=== PATIENT | female | born 1945 | race Caucasian/White ===

== ENCOUNTER → 2017-11-30 | Outpatient (CLI) | payer MEDICARE, OTHER ==
[~2017-11-30] MED LIST: ALBU90OI; AMLO5 PO; AZIT250 PO; BLOOD PRESSURE MED PO; CRANBERRY 12,61 EACH; CRANBERRY SUPPLEMENT PO; DOXE10 PO; ESTR25VT PV; Fenofibrate134 MG; GABA300; HYDCHL25; HYDCHL25 PO; KRILL OIL 1,001 EAC1; LOSA50; MEDI SLEEP; METO25ER; MULVITMIND PO; NAPR500ERA; NITR100 PO; NITR100CA PO; OLOP.1OPSO BOTHEYES; SULTRIDS PO; VAGIFEM10 MCG
[2017-12-02 11:16] LABS: HPV Genotype 16 Not Detected (NOTDET); HPV Genotype 18 Not Detected (NOTDET)
[2017-12-06 10:59] LABS: HPV High Risk Other Not Detected (NOTDET)
[2017-12-06 12:28] LABS: Source VAG/CERVIX
== END | disposition home or self-care (01) ==
LOC: LAB 14:50 → LAB SHORT 14:50
PROVIDERS: Obstetrics & Gynecology
DX: Z01.419 Encounter for gynecological examination (general) (routine) without abnormal findings (principal)
CPT/HCPCS: 87624; G0123

== ENCOUNTER 2020-07-26 11:37 | Day surgery (SDC) | payer MEDICARE, OTHER ==
[~2020-07-26] VITALS: Ht 170.2 cm; Wt 88.6 kg
[~2020-07-26 11:37] MED LIST changes: +CRANBERRY CONC1 EAC1 PO; +DICY20 PO; +Hair, Skin & N1 EACH PO; +LOSA50 PO; +Lovastatin20 MG PO; +MOTOFEN PO; +Selenomax200 MCG PO; +VIT1CAPS12 PO; +VITAMIN D32000 UNI2 PO
== END 2020-07-26 13:58 | disposition home or self-care (01) ==
LOC: ORSCSDS 11:37
PROVIDERS: Internal Medicine Gastroenterology
PROC: 0DBE8ZX Excision of Large Intestine, Via Natural or Artificial Opening Endoscopic, Diagnostic (ICD-10-PCS; principal; 2020-07-26 13:00)
PROC: 0DB78ZX Excision of Stomach, Pylorus, Via Natural or Artificial Opening Endoscopic, Diagnostic (ICD-10-PCS; principal; 2020-07-26 13:00)
PROC: 0DBH8ZX Excision of Cecum, Via Natural or Artificial Opening Endoscopic, Diagnostic (ICD-10-PCS; principal; 2020-07-26 13:00)
PROC: 0DBM8ZX Excision of Descending Colon, Via Natural or Artificial Opening Endoscopic, Diagnostic (ICD-10-PCS; principal; 2020-07-26 13:00)
DX: R19.7 Diarrhea, unspecified (principal); R10.84 Generalized abdominal pain; Z86.010 Personal history of colon polyps; R13.10 Dysphagia, unspecified; D12.0 Benign neoplasm of cecum; D12.4 Benign neoplasm of descending colon; K63.5 Polyp of colon; K29.70 Gastritis, unspecified, without bleeding; Z80.0 Family history of malignant neoplasm of digestive organs; Z87.891 Personal history of nicotine dependence; I10 Essential (primary) hypertension; G47.33 Obstructive sleep apnea (adult) (pediatric); Z79.899 Other long term (current) drug therapy
CPT/HCPCS: 87081; 88305; 88342; J2704; J7120

== ENCOUNTER 2020-10-03 23:42 | Emergency (ER) | payer MEDICARE, OTHER ==
[~2020-10-03] VITALS: Ht 170.2 cm; Wt 90.3 kg
[~2020-10-03 23:42] MED LIST changes: -CRANBERRY CONC1 EAC1 PO; -DICY20 PO; -Hair, Skin & N1 EACH PO; -LOSA50 PO; -Lovastatin20 MG PO; -MOTOFEN PO; -VIT1CAPS12 PO; -VITAMIN D32000 UNI2 PO
[2020-10-04] MEDS ORDERED: DICY20 PO (18:41)
[2020-10-04] MEDS ORDERED: ATROPINE PO (18:46)
[2020-10-04] MEDS ORDERED: [UNRECOGNIZED DRUG - OTHER] PO (18:46)
[2020-10-04] MEDS ORDERED: Selenomax200 MCG PO (18:47)
[2020-10-04] MEDS ORDERED: Hair, Skin & N1 EACH PO (19:07)
[2020-10-04] MEDS ORDERED: DOXE10 PO (19:07)
[2020-10-04] MEDS ORDERED: Lovastatin20 MG PO (19:07)
[2020-10-04] MEDS ORDERED: LOSARTAN POTAS100 MG PO (19:07)
[2020-10-04] MEDS ORDERED: VITAMIN D32000 UNI2 PO (19:07)
[2020-10-04] MEDS ORDERED: AMLO5 PO (19:07)
[2020-10-04] MEDS ORDERED: Cranberry400 MG PO (19:07)
[2020-10-04] MEDS ORDERED: PRESERVISION A1 EAC1 PO (19:08)
[2020-10-04] MEDS ORDERED: MELATONIN1010 PO (19:08)
[2020-10-04] MEDS ORDERED: VAGIFEM10 MCG VAG (19:09)
== END 2020-10-04 02:17 | disposition home or self-care (01) ==
LOC: ER 23:42
DX: M25.561 Pain in right knee (principal); J44.9 Chronic obstructive pulmonary disease, unspecified; M79.604 Pain in right leg; Z91.09 Other allergy status, other than to drugs and biological substances; Z88.8 Allergy status to other drugs, medicaments and biological substances; Z79.899 Other long term (current) drug therapy; Z87.891 Personal history of nicotine dependence
CPT/HCPCS: 93971; 99284-25; A9270

== ENCOUNTER 2020-10-04 13:29 | Inpatient (IN) | payer MEDICARE, OTHER ==
[~2020-10-04] VITALS: Ht 170.2 cm; Wt 89.9 kg
[2020-10-04 14:27] LABS: BASOPHILS ABSOLUTE AUTO 0.03 K/mm3 (0.00-0.23); BASOPHILS PERCENT AUTO 0 % (0-2); EOSINOPHILS PERCENT AUTO 0 % (0-6); Hemoglobin 13.6 g/dL (11.5-16.0); IMMATURE GRAN ABSOLUTE AUTO 0.17 K/mm3 (0.00-0.10); IMMATURE GRAN PERCENT AUTO 1 % (0-1); LYMPHOCYTES ABSOLUTE AUTO 1.34 K/mm3 (0.84-5.20); LYMPHOCYTES PERCENT AUTO 6 % (21-46); MONOCYTES ABSOLUTE AUTO 2.77 K/mm3 (0.16-1.47); MONOCYTES PERCENT AUTO 13 % (4-13); Mean Corpuscular HGB 30.9 pg (26.0-34.0); Mean Corpuscular HGB Conc 33.2 g/dL (31.5-36.5); Mean Corpuscular Volume 93 fL (80-100); Mean Platelet Volume 9.1 fL (9.1-12.4); NEUTROPHILS ABSOLUTE AUTO 17.11 K/mm3 (1.96-9.15); NEUTROPHILS PERCENT AUTO 80 % (41-73); Platelet Count 275 K/mm3 (150-400); RDW Coefficient Variation 13.1 % (11.7-14.2); RDW Standard Deviation 44.8 fL (35.1-46.3); White Blood Cell Count 21.42 K/mm3 (4.00-11.30)
[2020-10-04 14:29] LABS: Albumin, Blood 3.5 g/dL (3.4-5.0); Albumin/Globulin Ratio 0.9 (0.8-1.8); Bilirubin, Total 0.9 mg/dL (0.1-1.0); Calcium, Blood 9.2 mg/dL (8.5-10.1); Globulin, Blood 4.1 g/dL (2.2-4.0); Potassium, Blood 3.9 mmol/L (3.5-5.5); Total Protein, Blood 7.6 g/dL (6.4-8.2)
[2020-10-04 18:17] LABS: Body Fluid Crystals NEG (NEGATIVE)
[2020-10-04 18:29] LABS: WBC Count, Synovial Fluid >200000 /mm3 (0-180)
[2020-10-04 18:30] LABS: Protein, Body Fluid 5.3 g/dL
[2020-10-04 18:32] LABS: Glucose, Body Fluid <1 mg/dL
[2020-10-04] MEDS ORDERED: DICY20 PO (18:41)
[2020-10-04 18:45] LABS: Lymphs, Synovial Fluid 4 % (0-15); Monocytes/Macrophages, Synovia 8 % (0-65); Neutrophils, Synovial Fluid 88 % (0-24)
[2020-10-04 18:46] LABS: Appearance, Synovial Fluid Turbid (Clear); BODY FLUID RBC 0.047 M/mm3 (0-0); Color, Synovial Fluid Brown (None-P Yel); RBC Count, Synovial Fluid 47000 /mm3 (0-0)
[2020-10-04] MEDS ORDERED: [UNRECOGNIZED DRUG - OTHER] PO (18:46)
[2020-10-04] MEDS ORDERED: ATROPINE PO (18:46)
[2020-10-04] MEDS ORDERED: Selenomax200 MCG PO (18:47)
[2020-10-04] MEDS ORDERED: LOSARTAN POTAS100 MG PO (19:07)
[2020-10-04] MEDS ORDERED: DOXE10 PO (19:07)
[2020-10-04] MEDS ORDERED: Lovastatin20 MG PO (19:07)
[2020-10-04] MEDS ORDERED: Hair, Skin & N1 EACH PO (19:07)
[2020-10-04] MEDS ORDERED: AMLO5 PO (19:07)
[2020-10-04] MEDS ORDERED: VITAMIN D32000 UNI2 PO (19:07)
[2020-10-04] MEDS ORDERED: Cranberry400 MG PO (19:07)
[2020-10-04] MEDS ORDERED: PRESERVISION A1 EAC1 PO (19:08)
[2020-10-04] MEDS ORDERED: MELATONIN1010 PO (19:08)
[2020-10-04] MEDS ORDERED: VAGIFEM10 MCG VAG (19:09)
[2020-10-05 03:14] LABS: Influenza A, PCR NEGATIVE (NEGATIVE); Influenza B, PCR NEGATIVE (NEGATIVE); Resp Syncytial Virus, PCR NEGATIVE (NEGATIVE); SARS-Cov-2 (COVID-19) PCR, MMC NEGATIVE (NEGATIVE)
[2020-10-05 05:06] LABS: BASOPHILS ABSOLUTE AUTO 0.04 K/mm3 (0.00-0.23); BASOPHILS PERCENT AUTO 0 % (0-2); EOSINOPHILS ABSOLUTE AUTO 0.04 K/mm3 (0.00-0.68); EOSINOPHILS PERCENT AUTO 0 % (0-6); Hematocrit 37.6 % (33.0-51.0); Hemoglobin 12.3 g/dL (11.5-16.0); IMMATURE GRAN ABSOLUTE AUTO 0.07 K/mm3 (0.00-0.10); IMMATURE GRAN PERCENT AUTO 1 % (0-1); LYMPHOCYTES ABSOLUTE AUTO 1.71 K/mm3 (0.84-5.20); LYMPHOCYTES PERCENT AUTO 11 % (21-46); MONOCYTES ABSOLUTE AUTO 1.71 K/mm3 (0.16-1.47); MONOCYTES PERCENT AUTO 11 % (4-13); Mean Corpuscular HGB 30.8 pg (26.0-34.0); Mean Corpuscular HGB Conc 32.7 g/dL (31.5-36.5); Mean Corpuscular Volume 94 fL (80-100); NEUTROPHILS ABSOLUTE AUTO 11.91 K/mm3 (1.96-9.15); NEUTROPHILS PERCENT AUTO 77 % (41-73); Platelet Count 220 K/mm3 (150-400); RDW Coefficient Variation 13.2 % (11.7-14.2); RDW Standard Deviation 45.7 fL (35.1-46.3); White Blood Cell Count 15.48 K/mm3 (4.00-11.30)
[2020-10-05 05:32] LABS: Albumin, Blood 2.9 g/dL (3.4-5.0); Albumin/Globulin Ratio 0.8 (0.8-1.8); Bilirubin, Total 0.9 mg/dL (0.1-1.0); Bun/Creatinine Ratio 25.7 (12.0-20.0); Calcium, Blood 8.9 mg/dL (8.5-10.1); Creatinine, Blood 1.05 mg/dL (0.40-1.00); Globulin, Blood 3.6 g/dL (2.2-4.0); Potassium, Blood 3.6 mmol/L (3.5-5.5); Total Protein, Blood 6.5 g/dL (6.4-8.2)
--- NOTE | 2020-10-05 08:40 | NUR ---
SUMMARY ADMITTED THIS SHIFT FOR R KNEE SWELLING. WAS TAPPED IN ER. HX ESBL IN URINE. PT PLACED IN CONTACT ISO. [facility] CX TODAY WHICH I CALLED.
--- NOTE | 2020-10-05 17:49 | NUR ---
SHIFT SUMMARY PT A/O X4; PLEASANT AND COOPERATIVE WITH CARE. PT C/O PAIN IN THE L SHOULDER AND THE R KNEE. PAIN IS BEING MANAGED WELL WITH A HEATING PAD. ORTHO CONSULTED. INTERVENTIONAL RADIOLOGY WAS ALSO CONSULTED BUT THE RADIOLOGIST SAID THAT THE CONSULT WAS NOT INDICATED. VSS; PT RESTING COMFORTABLY IN BED WITH CALL LIGHT IN REACH.
[2020-10-06 04:47] LABS: BASOPHILS ABSOLUTE AUTO 0.02 K/mm3 (0.00-0.23); BASOPHILS PERCENT AUTO 0 % (0-2); EOSINOPHILS ABSOLUTE AUTO 0.04 K/mm3 (0.00-0.68); EOSINOPHILS PERCENT AUTO 0 % (0-6); Hematocrit 33.7 % (33.0-51.0); Hemoglobin 11.2 g/dL (11.5-16.0); IMMATURE GRAN ABSOLUTE AUTO 0.07 K/mm3 (0.00-0.10); IMMATURE GRAN PERCENT AUTO 1 % (0-1); LYMPHOCYTES ABSOLUTE AUTO 1.89 K/mm3 (0.84-5.20); LYMPHOCYTES PERCENT AUTO 16 % (21-46); MONOCYTES ABSOLUTE AUTO 1.05 K/mm3 (0.16-1.47); MONOCYTES PERCENT AUTO 9 % (4-13); Mean Corpuscular HGB 31.2 pg (26.0-34.0); Mean Corpuscular HGB Conc 33.2 g/dL (31.5-36.5); Mean Corpuscular Volume 94 fL (80-100); NEUTROPHILS ABSOLUTE AUTO 9.07 K/mm3 (1.96-9.15); NEUTROPHILS PERCENT AUTO 75 % (41-73); Platelet Count 217 K/mm3 (150-400); RDW Standard Deviation 44.6 fL (35.1-46.3); Red Blood Cell Count 3.59 M/mm3 (3.80-5.20); White Blood Cell Count 12.14 K/mm3 (4.00-11.30)
[2020-10-06 05:05] LABS: Anion Gap 7 mmol/L (6-16); Blood Urea Nitrogen 18 mg/dL (8-24); Bun/Creatinine Ratio 30.3 (12.0-20.0); CO2, Blood 23 mmol/L (21-32); Calcium, Blood 8.9 mg/dL (8.5-10.1); Chloride, Blood 112 mmol/L (98-108); Creatinine, Blood 0.59 mg/dL (0.40-1.00); Glomerular Filtration Rate >60 (60-); Glucose, Blood 92 mg/dL (70-99); Potassium, Blood 3.6 mmol/L (3.5-5.5); Sodium, Blood 142 mmol/L (136-145)
--- NOTE | 2020-10-06 07:55 | NUR ---
SUMMARY PT DID NOT REQUIRE PAIN MEDS TONIGHT. PT REPORTS DR GAITAN SPOKE WITH HER ABOUT POSSIBLE REVISION R KNEE ON WEDNESDAY.
--- NOTE | 2020-10-06 17:36 | NUR ---
SUMMARY NO ACUTE CHANGES T/O SHIFT. PT C/O INCREASED DISCOMFORT TO LUE, STATING COMPENSATING WHEN AMBULATING WITH IT BY LEANING ON WALKER. AMBULATED TO RESTROOM T/O SHIFT W/ONE PERSON ASSIST USING FWW. MEDICATED ONCE DURING SHIFT W/ TYLENOL FOR RLE PAIN. PLACED ICE PACK BEHIND KNEE FOR COMFORT. PT NOW SITTING UP IN CHAIR TO EAT DINNER. CALL LIGHT IN REACH.
--- NOTE | 2020-10-07 07:37 | NUR ---
SUMMARY PT WITH MINIMAL DISCOMFORT L KNEE. CONTINUED WITH PAIN TO L SHOULDER WHICH WAS REPORTED PER DAY SHIFT WAS XR AND NO ACUTE FINDINGS. CONTIUES WITH NON SURGICAL CARE AT THIS TIME.
--- NOTE | 2020-10-07 17:06 | NUR ---
SHIFT SUMMARY PT A&OX4, VSS, PLAN FOR NPO AT MIDNIGHT FOR SURGERY TOMORROW. PAIN MANAGED WITH TYLENOL. SILVIA PO, DENIES N&V. AMBULATING WITH SBA, FWW & GB TO BRP. VOIDING WELL; BM TODAY. SHOWERED TODAY. CONSULT WITH DR CORNELL I/D COMPLETED. IVF KVO/ABX INFUSING AT ORDERED PER OCT. WILL REPORT TO ONCOMING SHARAN RN.
--- NOTE | 2020-10-08 04:25 | NUR ---
SHIFT SUMMARY PT IS A/O X4. SBA UP TO BATHROOM WITH FWW. PAIN MANAGED WITH TYLENOL PER ORDERS. PT HAS BEEN NPO SINCE MIDNIGHT EXCEPT FOR PILLS IN ANTICIPATION OF SURGERY TODAY. R LEG ELEVATED ON A PILLOW OVERNIGHT FOR COMFORT AND SWELLING. PT DID DECLINE SCD'S OVERNIGHT IT WAS UNCOMFORTABLE. NO ACUTE CHANGES THIS SHIFT. PT RESTING IN BED WITH CALL LIGHT IN REACH AT THIS TIME.
--- NOTE | 2020-10-08 15:07 | NUR ---
PT TRANSFERED TO [facility] VIA [facility] FROM FLOOR. History, Chart, Medications and Allergies reviewed before start of procedure. Lungs clear T/O to Auscultation. Patient confirms NPO status and agrees with scheduled surgery. Pre-Op teaching done. Pt verbalizes understanding.
--- NOTE | 2020-10-08 16:23 | NUR ---
10/08/20 1623 Phoenix Headley PATIENT ON SCHEDULED ANTIBIOTICS
--- NOTE | 2020-10-08 18:26 | NUR ---
SHIFT SUMMARY PT A&OX4, VSS, IN OPERATING ROOM AT THIS TIME FOR R KNEE REVISION. AT BEDSIDE AWAITING PT RETURN FROM PACU. PT PREOP PAIN TREATED WITH 25 MCGS FENT, SILVIA PO REG DIET, AMBULATED WITH FWW/GB TO BRP, VOIDING WELL, BM YESTERDAY. WILL REPORT TO ONCOMING NOC RN.
[2020-10-09 05:17] LABS: BASOPHILS ABSOLUTE AUTO 0.03 K/mm3 (0.00-0.23); BASOPHILS PERCENT AUTO 0 % (0-2); EOSINOPHILS ABSOLUTE AUTO 0.02 K/mm3 (0.00-0.68); EOSINOPHILS PERCENT AUTO 0 % (0-6); Hematocrit 30.5 % (33.0-51.0); IMMATURE GRAN ABSOLUTE AUTO 0.02 K/mm3 (0.00-0.10); IMMATURE GRAN PERCENT AUTO 0 % (0-1); LYMPHOCYTES ABSOLUTE AUTO 1.81 K/mm3 (0.84-5.20); LYMPHOCYTES PERCENT AUTO 21 % (21-46); MONOCYTES ABSOLUTE AUTO 1.44 K/mm3 (0.16-1.47); MONOCYTES PERCENT AUTO 17 % (4-13); Mean Corpuscular HGB 30.5 pg (26.0-34.0); Mean Corpuscular HGB Conc 32.8 g/dL (31.5-36.5); Mean Corpuscular Volume 93 fL (80-100); Mean Platelet Volume 8.9 fL (9.1-12.4); NEUTROPHILS ABSOLUTE AUTO 5.23 K/mm3 (1.96-9.15); NEUTROPHILS PERCENT AUTO 61 % (41-73); Platelet Count 268 K/mm3 (150-400); RDW Coefficient Variation 12.6 % (11.7-14.2); RDW Standard Deviation 43.1 fL (35.1-46.3); Red Blood Cell Count 3.28 M/mm3 (3.80-5.20); White Blood Cell Count 8.55 K/mm3 (4.00-11.30)
[2020-10-09 06:04] LABS: Anion Gap 10 mmol/L (6-16); Blood Urea Nitrogen 10 mg/dL (8-24); Bun/Creatinine Ratio 20.2 (12.0-20.0); CO2, Blood 24 mmol/L (21-32); Calcium, Blood 8.6 mg/dL (8.5-10.1); Chloride, Blood 110 mmol/L (98-108); Glomerular Filtration Rate >60 (60-); Glucose, Blood 76 mg/dL (70-99); Potassium, Blood 3.4 mmol/L (3.5-5.5); Sodium, Blood 144 mmol/L (136-145)
--- NOTE | 2020-10-09 07:22 | NUR ---
SHIFT SUMMARY POD1 HARDWARE REMOVAL & PLASTIC ABX SPACER INSERTION, A/O X4, VSS, TOLERATING PO, VOIDING W/ MILD RETENTION (DAY RN NOTIFIED), PAIN WELL CONTROLLED. CALL LIGHT IN REACH, REPORT GIVEN TO DAY RN.
--- NOTE | 2020-10-09 08:05 | NUR ---
PT JUST WOKE UP STATED PAIN IS ABOUT 4/10 PT HAS FOLED UP TOWEL AND PILLOW UNDER THE KNEE TOLD PT SHE CANNOT HAVE IT LIKE THAT DUE TO DVT RISK PT CAN HAVE THE FULL LEG ELEV INSTEAD
--- NOTE | 2020-10-09 12:37 | NUR ---
pt having her brace placed by ortho staff
--- NOTE | 2020-10-09 14:48 | NUR ---
pt to the bathroom on her new brace then back to bed pt stated she vic well s/o at bedside
--- NOTE | 2020-10-09 18:15 | NUR ---
PT STATED SHE HAD QUESTIONS REG DISCHARGE AND SUPPLIES WANTED TO TALK WITH DISCHARGE PLANNING WILL CALL [facility] WHEN S/O ARRIVES AGAIN TOMORROW
--- NOTE | 2020-10-10 07:32 | NUR ---
SHIFT SUMMARY POD2 HARDWAR REMOVAL AND ABX INFUSED SPACER INSERTION TO R KNEE, HEMOVAC IN PLACE DRAINING SMALL AMT OF SS DRAINAGE, A/O X4, VSS, 1 PERSON SBA TO AMBULATE, TOLERATING DIET, PAIN WELL CONTROLLED PER EMAR. CALL LIGHT IN REACH, REPORT GIVEN TO DAY RN.
[2020-10-10] MEDS ORDERED: CEFTRIAXONE2 G1 IV (14:57)
--- NOTE | 2020-10-10 16:19 | NUR ---
DISCHARGE SUMMARY PT A/O X4; PLEASANT AND COOPERATIVE WITH CARE. POST OP FOR HARDWARE CHANGE IN THE R KNEE. HEMOVAC DRAINING SEROSANGUINOUS FLUID AND REMOVED THIS SHIFT. PT TO FOLLOW UP WITH [facility] FOR ANTIBIOTIC INFUSIONS UNTIL WEDNESDAY. FIRST APPOINTMENT 10/11/20 AT 0800. PT WILL FOLLOW UP WITH INFUSIONS DONE BY [facility]. INCISION C/D/I AND COVERED WITH AQUALCEL BANDAGE AND POLLY BANDAGE. DISCHARGED HOME WITH .
== END 2020-10-10 16:30 | disposition home or self-care (01) | DRG 467 ==
LOC: ER 13:29 → SURS 18:37
PROVIDERS: Internal Medicine; Orthopaedic Surgery; Physician Assistant; ADMIT Internal Medicine
PROC: 0S9C3ZX Drainage of Right Knee Joint, Percutaneous Approach, Diagnostic (ICD-10-PCS; 2020-10-04)
PROC: 0SPC0JZ Removal of Synthetic Substitute from Right Knee Joint, Open Approach (ICD-10-PCS; 2020-10-08)
PROC: 0SRC0EZ Replacement of Right Knee Joint with Articulating Spacer, Open Approach (ICD-10-PCS; 2020-10-08)
PROC: 02HV33Z Insertion of Infusion Device into Superior Vena Cava, Percutaneous Approach (ICD-10-PCS; principal; 2020-10-09)
DX: T84.53XA Infection and inflammatory reaction due to internal right knee prosthesis, initial encounter (principal); M00.9 Pyogenic arthritis, unspecified; N17.9 Acute kidney failure, unspecified; Z87.891 Personal history of nicotine dependence; I10 Essential (primary) hypertension; E78.5 Hyperlipidemia, unspecified; E86.0 Dehydration; Z20.822 Contact with and (suspected) exposure to COVID-19; Z90.3 Acquired absence of stomach [part of]
CPT/HCPCS: 0241U; 20610; 36415; 36569; 73030; 73560-RT; 73564; 80048; 80053; 82945; 83605; 84157; 85025; 85651; 86140; 87040; 87070; 87075; 87102; 87147; 87205; 89051; 89060; 93005; 93010; 93971; 96365-59; 96367-59; 96375-59; 97110; 97116; 97161; 97530; 99284-25; A9270; C1713; C1751; C1776; J0690; J0696; J1100; J1170; J1650; J1885; J2250; J2370; J2405; J2543; J2704; J3010; J3370; J7030; J7050; J7120

== ENCOUNTER 2020-10-11 01:02 | Day surgery (SDC) | payer MEDICARE, OTHER ==
[~2020-10-11 01:02] MED LIST changes: +ATROPINE PO; +CEFTRIAXONE2 G1 IV; +Cranberry400 MG PO; +DICY20 PO; +Hair, Skin & N1 EACH PO; +LOSARTAN POTAS100 MG PO; +Lovastatin20 MG PO; +MELATONIN1010 PO; +PRESERVISION A1 EAC1 PO; +VAGIFEM10 MCG VAG; +VITAMIN D32000 UNI2 PO; +[UNRECOGNIZED DRUG - OTHER] PO
--- NOTE | 2020-10-11 08:42 | NUR ---
PT'S REPORTS THAT THEY ARE WAITING FOR HOME IV ANTIBIOTIC INFUSIONS TO BE SET UP. THEY ARE HOPEFUL THAT IT MAY BE SOON TODAY. PHONE NUMBER TO SESAR GIVEN. PT'S STATES HE WILL CALL IF HER HOME INFUSIONS GET SET UP TODAY.
== END 2020-10-11 08:35 | disposition home or self-care (01) ==
LOC: ATC 01:02
DX: M00.9 Pyogenic arthritis, unspecified (principal); I10 Essential (primary) hypertension; E78.5 Hyperlipidemia, unspecified; Z96.653 Presence of artificial knee joint, bilateral
CPT/HCPCS: 96365; J0696

== ENCOUNTER 2020-10-12 08:00 | Day surgery (SDC) | payer MEDICARE, OTHER | END 2020-10-12 08:43 | disposition home or self-care (01) | LOC: ATC 08:00 | DX: T84.53XA Infection and inflammatory reaction due to internal right knee prosthesis, initial encounter (principal); M00.9 Pyogenic arthritis, unspecified; I10 Essential (primary) hypertension; E78.5 Hyperlipidemia, unspecified; Z96.653 Presence of artificial knee joint, bilateral; Z88.8 Allergy status to other drugs, medicaments and biological substances; Z91.048 Other nonmedicinal substance allergy status; Y79.2 Prosthetic and other implants, materials and accessory orthopedic devices associated with adverse incidents | CPT/HCPCS: 96365; J0696 ==

== ENCOUNTER 2020-10-13 07:56 | Day surgery (SDC) | payer MEDICARE, OTHER | END 2020-10-13 08:29 | disposition home or self-care (01) | LOC: ATC 07:56 | DX: M00.9 Pyogenic arthritis, unspecified (principal); I10 Essential (primary) hypertension; E78.5 Hyperlipidemia, unspecified; Z96.653 Presence of artificial knee joint, bilateral; Z88.8 Allergy status to other drugs, medicaments and biological substances; Z91.048 Other nonmedicinal substance allergy status | CPT/HCPCS: 96365; J0696 ==

== ENCOUNTER 2020-10-14 00:39 | Day surgery (SDC) | payer MEDICARE, OTHER | END 2020-10-14 08:38 | disposition home or self-care (01) | LOC: ATC 00:39 | DX: M00.9 Pyogenic arthritis, unspecified (principal); I10 Essential (primary) hypertension; E78.5 Hyperlipidemia, unspecified; Z96.653 Presence of artificial knee joint, bilateral | CPT/HCPCS: 96365; J0696 ==

== ENCOUNTER → 2020-10-18 | Outpatient (CLI) | payer MEDICARE, OTHER ==
[~2020-10-18] MED LIST changes: +ACET500 PO; +ASPI81CH PO; +Percocet 5-3251 EACH PO; +SERT25 PO; +VANCOCIN HCL125 MG PO
[2020-10-18 13:44] LABS: BASOPHILS ABSOLUTE AUTO 0.06 K/mm3 (0.00-0.23); BASOPHILS PERCENT AUTO 1 % (0-2); EOSINOPHILS ABSOLUTE AUTO 0.15 K/mm3 (0.00-0.68); EOSINOPHILS PERCENT AUTO 2 % (0-6); Hematocrit 34.7 % (33.0-51.0); IMMATURE GRAN ABSOLUTE AUTO 0.03 K/mm3 (0.00-0.10); IMMATURE GRAN PERCENT AUTO 0 % (0-1); LYMPHOCYTES ABSOLUTE AUTO 2.17 K/mm3 (0.84-5.20); LYMPHOCYTES PERCENT AUTO 23 % (21-46); MONOCYTES ABSOLUTE AUTO 1.04 K/mm3 (0.16-1.47); MONOCYTES PERCENT AUTO 11 % (4-13); Mean Corpuscular HGB 30.2 pg (26.0-34.0); Mean Corpuscular HGB Conc 31.7 g/dL (31.5-36.5); Mean Corpuscular Volume 95 fL (80-100); Mean Platelet Volume 8.5 fL (9.1-12.4); NEUTROPHILS ABSOLUTE AUTO 6.14 K/mm3 (1.96-9.15); NEUTROPHILS PERCENT AUTO 64 % (41-73); Platelet Count 572 K/mm3 (150-400); RDW Coefficient Variation 12.6 % (11.7-14.2); RDW Standard Deviation 43.9 fL (35.1-46.3); Red Blood Cell Count 3.64 M/mm3 (3.80-5.20); White Blood Cell Count 9.59 K/mm3 (4.00-11.30)
[2020-10-18 14:01] LABS: Alanine Aminotransfer (ALT/SGP 16 U/L (12-78); Albumin, Blood 2.9 g/dL (3.4-5.0); Albumin/Globulin Ratio 0.6 (0.8-1.8); Alk Phos 108 U/L (50-136); Anion Gap 7 mmol/L (6-16); Aspartate Aminotrans (AST/SGOT 14 U/L (12-37); Bilirubin, Total 0.5 mg/dL (0.1-1.0); Blood Urea Nitrogen 20 mg/dL (8-24); Bun/Creatinine Ratio 32.9 (12.0-20.0); CO2, Blood 26 mmol/L (21-32); Calcium, Blood 9.3 mg/dL (8.5-10.1); Chloride, Blood 105 mmol/L (98-108); Creatinine, Blood 0.61 mg/dL (0.40-1.00); Globulin, Blood 4.7 g/dL (2.2-4.0); Glomerular Filtration Rate >60 (60-); Glucose, Blood 90 mg/dL (70-99); Potassium, Blood 4.8 mmol/L (3.5-5.5); Sodium, Blood 138 mmol/L (136-145); Total Protein, Blood 7.6 g/dL (6.4-8.2)
== END | disposition home or self-care (01) ==
LOC: LAB SRC 11:00 → LAB SHORT 11:00
PROVIDERS: Orthopaedic Surgery
DX: T84.53XA Infection and inflammatory reaction due to internal right knee prosthesis, initial encounter (principal); C85.80 Other specified types of non-Hodgkin lymphoma, unspecified site; M00.861 Arthritis due to other bacteria, right knee; E78.5 Hyperlipidemia, unspecified
CPT/HCPCS: 80053; 85025; 85651; 86140

== ENCOUNTER → 2020-10-25 | Outpatient (CLI) | payer MEDICARE, OTHER ==
[2020-10-25 11:57] LABS: BASOPHILS ABSOLUTE AUTO 0.04 K/mm3 (0.00-0.23); BASOPHILS PERCENT AUTO 0 % (0-2); EOSINOPHILS ABSOLUTE AUTO 0.12 K/mm3 (0.00-0.68); EOSINOPHILS PERCENT AUTO 1 % (0-6); Hematocrit 35.3 % (33.0-51.0); Hemoglobin 11.5 g/dL (11.5-16.0); IMMATURE GRAN ABSOLUTE AUTO 0.03 K/mm3 (0.00-0.10); IMMATURE GRAN PERCENT AUTO 0 % (0-1); LYMPHOCYTES ABSOLUTE AUTO 1.15 K/mm3 (0.84-5.20); LYMPHOCYTES PERCENT AUTO 12 % (21-46); MONOCYTES ABSOLUTE AUTO 0.96 K/mm3 (0.16-1.47); MONOCYTES PERCENT AUTO 10 % (4-13); Mean Corpuscular HGB 30.5 pg (26.0-34.0); Mean Corpuscular HGB Conc 32.6 g/dL (31.5-36.5); Mean Corpuscular Volume 94 fL (80-100); Mean Platelet Volume 8.6 fL (9.1-12.4); NEUTROPHILS ABSOLUTE AUTO 7.42 K/mm3 (1.96-9.15); NEUTROPHILS PERCENT AUTO 76 % (41-73); Platelet Count 440 K/mm3 (150-400); RDW Coefficient Variation 12.9 % (11.7-14.2); RDW Standard Deviation 44.4 fL (35.1-46.3); Red Blood Cell Count 3.77 M/mm3 (3.80-5.20); White Blood Cell Count 9.72 K/mm3 (4.00-11.30)
[2020-10-25 12:12] LABS: Alanine Aminotransfer (ALT/SGP 14 U/L (12-78); Albumin, Blood 3.1 g/dL (3.4-5.0); Albumin/Globulin Ratio 0.7 (0.8-1.8); Alk Phos 139 U/L (50-136); Anion Gap 9 mmol/L (6-16); Aspartate Aminotrans (AST/SGOT 12 U/L (12-37); Bilirubin, Total 0.3 mg/dL (0.1-1.0); Blood Urea Nitrogen 15 mg/dL (8-24); Bun/Creatinine Ratio 26.2 (12.0-20.0); CO2, Blood 24 mmol/L (21-32); Calcium, Blood 9.3 mg/dL (8.5-10.1); Chloride, Blood 106 mmol/L (98-108); Creatinine, Blood 0.57 mg/dL (0.40-1.00); Globulin, Blood 4.5 g/dL (2.2-4.0); Glomerular Filtration Rate >60 (60-); Glucose, Blood 90 mg/dL (70-99); Potassium, Blood 4.4 mmol/L (3.5-5.5); Sodium, Blood 139 mmol/L (136-145); Total Protein, Blood 7.6 g/dL (6.4-8.2)
== END | disposition home or self-care (01) ==
LOC: LAB SHORT 11:49 → LAB 11:49
PROVIDERS: Internal Medicine
DX: Z47.33 Aftercare following explantation of knee joint prosthesis (principal); T84.53XA Infection and inflammatory reaction due to internal right knee prosthesis, initial encounter; M00.861 Arthritis due to other bacteria, right knee; I10 Essential (primary) hypertension; Z79.2 Long term (current) use of antibiotics
CPT/HCPCS: 80053; 85025; 85651; 86140

== ENCOUNTER → 2020-11-04 | Outpatient (CLI) | payer MEDICARE, OTHER ==
[2020-11-04 14:56] LABS: Alanine Aminotransfer (ALT/SGP 13 U/L (12-78); Albumin, Blood 2.7 g/dL (3.4-5.0); Albumin/Globulin Ratio 0.7 (0.8-1.8); Alk Phos 121 U/L (50-136); Anion Gap 9 mmol/L (6-16); Aspartate Aminotrans (AST/SGOT 16 U/L (12-37); Bilirubin, Total 0.4 mg/dL (0.1-1.0); Blood Urea Nitrogen 12 mg/dL (8-24); Bun/Creatinine Ratio 28.8 (12.0-20.0); CO2, Blood 23 mmol/L (21-32); Calcium, Blood 9.1 mg/dL (8.5-10.1); Chloride, Blood 108 mmol/L (98-108); Creatinine, Blood 0.42 mg/dL (0.40-1.00); Globulin, Blood 4.1 g/dL (2.2-4.0); Glomerular Filtration Rate >60 (60-); Glucose, Blood 93 mg/dL (70-99); Potassium, Blood 4.4 mmol/L (3.5-5.5); Sodium, Blood 140 mmol/L (136-145); Total Protein, Blood 6.8 g/dL (6.4-8.2)
== END | disposition home or self-care (01) ==
LOC: LAB SHORT 12:48 → LAB 12:48
PROVIDERS: Orthopaedic Surgery
DX: T84.53XA Infection and inflammatory reaction due to internal right knee prosthesis, initial encounter (principal); M00.861 Arthritis due to other bacteria, right knee; I10 Essential (primary) hypertension; Z79.2 Long term (current) use of antibiotics
CPT/HCPCS: 80053

== ENCOUNTER → 2020-11-06 | Outpatient (CLI) | payer MEDICARE, OTHER ==
[2020-11-06 14:04] LABS: C DIFFICILE DNA POSITIVE (Negative)
== END | disposition home or self-care (01) ==
LOC: LAB SRC 06:50 → LAB SHORT 06:50
PROVIDERS: Internal Medicine Infectious Disease
DX: T84.53XA Infection and inflammatory reaction due to internal right knee prosthesis, initial encounter (principal); T36.95XA Adverse effect of unspecified systemic antibiotic, initial encounter
CPT/HCPCS: 87324; 87493

== ENCOUNTER → 2020-11-11 | Outpatient (CLI) | payer MEDICARE, OTHER ==
[2020-11-11 15:29] LABS: BASOPHILS ABSOLUTE AUTO 0.03 K/mm3 (0.00-0.23); BASOPHILS PERCENT AUTO 0 % (0-2); EOSINOPHILS ABSOLUTE AUTO 0.25 K/mm3 (0.00-0.68); EOSINOPHILS PERCENT AUTO 2 % (0-6); Hematocrit 32.3 % (33.0-51.0); Hemoglobin 10.1 g/dL (11.5-16.0); IMMATURE GRAN ABSOLUTE AUTO 0.05 K/mm3 (0.00-0.10); IMMATURE GRAN PERCENT AUTO 0 % (0-1); LYMPHOCYTES ABSOLUTE AUTO 1.68 K/mm3 (0.84-5.20); LYMPHOCYTES PERCENT AUTO 13 % (21-46); MONOCYTES ABSOLUTE AUTO 1.25 K/mm3 (0.16-1.47); MONOCYTES PERCENT AUTO 9 % (4-13); Mean Corpuscular HGB 28.5 pg (26.0-34.0); Mean Corpuscular HGB Conc 31.3 g/dL (31.5-36.5); Mean Corpuscular Volume 91 fL (80-100); Mean Platelet Volume 8.7 fL (9.1-12.4); NEUTROPHILS ABSOLUTE AUTO 10.08 K/mm3 (1.96-9.15); NEUTROPHILS PERCENT AUTO 76 % (41-73); Platelet Count 347 K/mm3 (150-400); RDW Coefficient Variation 12.8 % (11.7-14.2); RDW Standard Deviation 42.8 fL (35.1-46.3); Red Blood Cell Count 3.55 M/mm3 (3.80-5.20); White Blood Cell Count 13.34 K/mm3 (4.00-11.30)
[2020-11-11 17:01] LABS: Anion Gap 7 mmol/L (6-16); Blood Urea Nitrogen 10 mg/dL (8-24); Bun/Creatinine Ratio 20.9 (12.0-20.0); CO2, Blood 25 mmol/L (21-32); Calcium, Blood 9.2 mg/dL (8.5-10.1); Chloride, Blood 108 mmol/L (98-108); Creatinine, Blood 0.48 mg/dL (0.40-1.00); Glomerular Filtration Rate >60 (60-); Glucose, Blood 108 mg/dL (70-99); Potassium, Blood 3.9 mmol/L (3.5-5.5); Sodium, Blood 140 mmol/L (136-145)
== END | disposition home or self-care (01) ==
LOC: LAB 12:30 → LAB SHORT 12:30
PROVIDERS: Orthopaedic Surgery
DX: T84.53XA Infection and inflammatory reaction due to internal right knee prosthesis, initial encounter (principal); C85.80 Other specified types of non-Hodgkin lymphoma, unspecified site; M00.861 Arthritis due to other bacteria, right knee; I10 Essential (primary) hypertension; Z79.2 Long term (current) use of antibiotics
CPT/HCPCS: 80048; 85025

== ENCOUNTER 2020-11-15 10:57 | Day surgery (SDC) | payer MEDICARE, OTHER ==
[~2020-11-15 10:57] MED LIST changes: -ACET500 PO; -ASPI81CH PO; -Percocet 5-3251 EACH PO; -SERT25 PO; -VANCOCIN HCL125 MG PO
[2020-11-15] MEDS ORDERED: VANCOCIN HCL125 MG PO (14:37)
== END 2020-11-15 14:26 | disposition home or self-care (01) ==
LOC: ATC 10:57
DX: T84.53XA Infection and inflammatory reaction due to internal right knee prosthesis, initial encounter (principal); A41.9 Sepsis, unspecified organism; I10 Essential (primary) hypertension; E78.2 Mixed hyperlipidemia; Y79.2 Prosthetic and other implants, materials and accessory orthopedic devices associated with adverse incidents; Z96.651 Presence of right artificial knee joint; Z87.891 Personal history of nicotine dependence; Z88.8 Allergy status to other drugs, medicaments and biological substances; Z85.72 Personal history of non-Hodgkin lymphomas
CPT/HCPCS: 99211

== ENCOUNTER → 2020-11-18 | Outpatient (CLI) | payer MEDICARE, OTHER ==
[~2020-11-18] MED LIST changes: +ACET500 PO; +ASPI81CH PO; +Percocet 5-3251 EACH PO; +SERT25 PO; +VANCOCIN HCL125 MG PO
[2020-11-18 18:00] LABS: BASOPHILS ABSOLUTE AUTO 0.03 K/mm3 (0.00-0.23); BASOPHILS PERCENT AUTO 0 % (0-2); EOSINOPHILS ABSOLUTE AUTO 0.19 K/mm3 (0.00-0.68); EOSINOPHILS PERCENT AUTO 2 % (0-6); IMMATURE GRAN ABSOLUTE AUTO 0.02 K/mm3 (0.00-0.10); IMMATURE GRAN PERCENT AUTO 0 % (0-1); LYMPHOCYTES ABSOLUTE AUTO 1.71 K/mm3 (0.84-5.20); LYMPHOCYTES PERCENT AUTO 22 % (21-46); MONOCYTES ABSOLUTE AUTO 0.78 K/mm3 (0.16-1.47); MONOCYTES PERCENT AUTO 10 % (4-13); Mean Corpuscular HGB 28.1 pg (26.0-34.0); Mean Corpuscular HGB Conc 31.4 g/dL (31.5-36.5); Mean Corpuscular Volume 90 fL (80-100); Mean Platelet Volume 8.6 fL (9.1-12.4); NEUTROPHILS ABSOLUTE AUTO 5.12 K/mm3 (1.96-9.15); NEUTROPHILS PERCENT AUTO 65 % (41-73); Platelet Count 419 K/mm3 (150-400); RDW Standard Deviation 42.6 fL (35.1-46.3); Red Blood Cell Count 3.91 M/mm3 (3.80-5.20); White Blood Cell Count 7.85 K/mm3 (4.00-11.30)
[2020-11-18 19:11] LABS: Alanine Aminotransfer (ALT/SGP 24 U/L (12-78); Albumin/Globulin Ratio 0.7 (0.8-1.8); Alk Phos 117 U/L (50-136); Anion Gap 9 mmol/L (6-16); Aspartate Aminotrans (AST/SGOT 15 U/L (12-37); Bilirubin, Total 0.3 mg/dL (0.1-1.0); Blood Urea Nitrogen 15 mg/dL (8-24); Bun/Creatinine Ratio 30.1 (12.0-20.0); CO2, Blood 22 mmol/L (21-32); Calcium, Blood 9.5 mg/dL (8.5-10.1); Chloride, Blood 106 mmol/L (98-108); Globulin, Blood 4.3 g/dL (2.2-4.0); Glomerular Filtration Rate >60 (60-); Glucose, Blood 113 mg/dL (70-99); Phosphorus, Blood 3.8 mg/dL (2.5-4.9); Sodium, Blood 137 mmol/L (136-145); Total Protein, Blood 7.3 g/dL (6.4-8.2)
== END | disposition home or self-care (01) ==
LOC: LAB 12:02 → LAB SHORT 12:02
PROVIDERS: Orthopaedic Surgery
DX: M00.861 Arthritis due to other bacteria, right knee (principal); T84.53XA Infection and inflammatory reaction due to internal right knee prosthesis, initial encounter; C85.80 Other specified types of non-Hodgkin lymphoma, unspecified site; I10 Essential (primary) hypertension; Z79.2 Long term (current) use of antibiotics
CPT/HCPCS: 80053; 84100; 85025; 85651

== ENCOUNTER 2021-02-11 09:45 | Inpatient (IN) | payer MEDICARE, OTHER ==
[~2021-02-11] VITALS: Ht 170.2 cm; Wt 80.1 kg
[~2021-02-11 09:45] MED LIST changes: -ACET500 PO; -ASPI81CH PO; -Percocet 5-3251 EACH PO; -SERT25 PO
[2021-02-11] MEDS ORDERED: SERT25 PO (10:18)
[2021-02-11] MEDS ORDERED: ACET500 PO (10:19)
--- NOTE | 2021-02-11 10:53 | NUR ---
Ambulatory in Day Surgery[facility] Paws warming gown applied. Fer Paws warming gown applied. Surgical site prepped with 2% Chlorhexidine cloth wipe. History, Chart, Medications and Allergies reviewed before start of procedure.Lungs clear T/O to Auscultation. Patient confirms NPO status and agrees with scheduled surgery. Pre-Op teaching done. Pt verbalizes understanding. Patient States Post-Procedure ride home has been arranged. Patient reports completing Chlorhexadine shower X2 prior to admission to hospital.
--- NOTE | 2021-02-11 17:34 | NUR ---
ARRIVAL TO UNIT PT ARRIVED FROM PACU. PT IS AAOX4, VSS. SHE DENIES PAIN AT THIS TIME AND REPORTS FEELING GOOD. SHE IS TOLERATING PO WITH NO NAUSEA. POLAR DONOVAN IS ON. POLLY WRAP CDI. PT DENIES NEEDING TO VOID AT THIS TIME. PACU REPORTED A STRAIGHT CATH AT APPROX 1700. PT HAS CALL LIGHT IN REACH AND WILL CALL IF SHE FEELS NEED TO GO. PLAN IS TO WORK WITH THERAPY TOMORROW AND POSSIBLY DISCHARGE HOME.
--- NOTE | 2021-02-11 18:14 | NUR ---
PT REPORTED TO THIS RN THAT SHE HAS BEEN FALLING FREQUENTLY WHILE WORKING AT HOME. SHE REPORTS GETTING LIGHT HEADED WHILE WORKING IN HER GARDEN. STATED IT HAS BEEN OCCURING OVER THE LAST 3 YEARS. DENIES ANY LIGHT HEADEDNESS AT THIS TIME.
--- NOTE | 2021-02-11 19:37 | NUR ---
RECEIVED REPORT AND ASSUMED CARE OF PT. SHE SITTING UP IN BED, AWAKE, ALERT AND ORIENTED. SHE STATES HER PAIN IS 5/10 AT THIS TIME, WILL MEDICATE PER MAR. DINNER TRAY JUST ARRIVED. ALAINA.
[2021-02-12 05:10] LABS: BASOPHILS ABSOLUTE AUTO 0.02 K/mm3 (0.00-0.23); BASOPHILS PERCENT AUTO 0 % (0-2); EOSINOPHILS PERCENT AUTO 0 % (0-6); Hemoglobin 9.3 g/dL (11.5-16.0); IMMATURE GRAN ABSOLUTE AUTO 0.03 K/mm3 (0.00-0.10); IMMATURE GRAN PERCENT AUTO 0 % (0-1); LYMPHOCYTES ABSOLUTE AUTO 1.29 K/mm3 (0.84-5.20); LYMPHOCYTES PERCENT AUTO 12 % (21-46); MONOCYTES ABSOLUTE AUTO 1.11 K/mm3 (0.16-1.47); MONOCYTES PERCENT AUTO 11 % (4-13); Mean Corpuscular HGB Conc 32.1 g/dL (31.5-36.5); Mean Corpuscular Volume 90 fL (80-100); Mean Platelet Volume 9.3 fL (9.1-12.4); NEUTROPHILS ABSOLUTE AUTO 7.93 K/mm3 (1.96-9.15); NEUTROPHILS PERCENT AUTO 76 % (41-73); Platelet Count 284 K/mm3 (150-400); RDW Coefficient Variation 14.3 % (11.7-14.2); RDW Standard Deviation 47.8 fL (35.1-46.3); Red Blood Cell Count 3.21 M/mm3 (3.80-5.20); White Blood Cell Count 10.38 K/mm3 (4.00-11.30)
[2021-02-12 05:32] LABS: Anion Gap 4 mmol/L (6-16); Blood Urea Nitrogen 18 mg/dL (8-24); CO2, Blood 26 mmol/L (21-32); Calcium, Blood 8.5 mg/dL (8.5-10.1); Chloride, Blood 108 mmol/L (98-108); Creatinine, Blood 0.62 mg/dL (0.40-1.00); Glomerular Filtration Rate >60 (60-); Glucose, Blood 110 mg/dL (70-99); Potassium, Blood 4.8 mmol/L (3.5-5.5); Sodium, Blood 138 mmol/L (136-145)
--- NOTE | 2021-02-12 05:46 | NUR ---
SHIFT SUMMARY: SINDY IS A&OX4. VSS, NO ACUTE EVENTS OVERNIGHT. SHE REPORTS ADEQUATE PAIN CONTROL WITH THE APAP, TORADOL, AND OXYCODONE. IV TO L AC PATENT, TOLERATING PO INTAKE WELL, ONE PERSON STANDBY ASSIST WITH THE FWW AND GAIT BELT. SHE IS URINATING WITHOUT ANY MORE DIFFICULTY THAN NORMAL, SHE STATES THAT SHE HAS CHRONIC UTIs THAT "COME AND GO". SHE IS UP TO THE CHAIR AT THE BEDSIDE WITH THE CALL LIGHT IN REACH. WILL REPORT TO DAY SHIFT RN.
[2021-02-12] MEDS ORDERED: ASPI81CH PO (09:15)
[2021-02-12] MEDS ORDERED: Percocet 5-3251 EACH PO (09:52)
--- NOTE | 2021-02-12 10:10 | NUR ---
DISCHARGE NOTE: PATIENT WAS EDUCATED ON DISCHARGE INSTRUCTIONS. PATIENT AND PATIENT'S VERBALIZED UNDERSTANDING OF INSTRUCTIONS. PATIENT HAS HARD PERSCRIPTION OF NARCOTICS IN THE INSTRUCTION FOLDER. SHE IS ALERT AND ORIENTED X4. VS ARE WNL AND ON RA. PAIN IS MANAGED WITH PO PAIN MEDICATIONS. AQUACEL AND POLLY WRAP ON KNEE IS C/D/I. PATIENT IS A SBA WITH FWW AND GAIT BELT WITH AMBULATION. SHE HAS HER ITEMS GATHERED AND IS DRESSED. IV WAS TAKEN OUT AND WAS WNL. SHE IS CURRENTLY BEING WHEELCHAIRED OUT WITH ITEMS TO HER HUSBANDS CAR. SHE WILL BE TAKEN HOME WITH .
== END 2021-02-12 10:02 | disposition home or self-care (01) | DRG 468 ==
LOC: ORSCMMR 09:45 → SURS 16:31 → ORSCMMR 16:31 → SURS 17:22 → ORSCMMR 17:22 → SURS 02-12 10:02
PROVIDERS: ADMIT Orthopaedic Surgery
PROC: 0SRC0J9 Replacement of Right Knee Joint with Synthetic Substitute, Cemented, Open Approach (ICD-10-PCS; 2021-02-11)
PROC: 8E0Y0CZ Robotic Assisted Procedure of Lower Extremity, Open Approach (ICD-10-PCS; 2021-02-11)
PROC: 0SPC0JZ Removal of Synthetic Substitute from Right Knee Joint, Open Approach (ICD-10-PCS; principal; 2021-02-11 11:45)
DX: T84.53XA Infection and inflammatory reaction due to internal right knee prosthesis, initial encounter (principal); Z87.891 Personal history of nicotine dependence; I10 Essential (primary) hypertension; G40.909 Epilepsy, unspecified, not intractable, without status epilepticus; Z90.49 Acquired absence of other specified parts of digestive tract; Z98.890 Other specified postprocedural states; Z98.49 Cataract extraction status, unspecified eye; Z90.710 Acquired absence of both cervix and uterus; Z88.0 Allergy status to penicillin
CPT/HCPCS: 36415; 73560-RT; 80048; 85025; 97110; 97116; 97162; 97530; A9270; C1713; C1776; J0171; J0690; J0735; J1170; J1885; J2250; J2704; J2795; J3010; J7120

== ENCOUNTER → 2022-06-10 | Outpatient (CLI) | payer MEDICARE, OTHER ==
[~2022-06-10] MED LIST changes: +ACET500 PO; +ASPI81CH PO; +Percocet 5-3251 EACH PO; +SERT25 PO
== END ==
LOC: LAB SHORT 10:19 → LAB 10:19
DX: R30.0 Dysuria (principal)
CPT/HCPCS: 87077; 87086; 87186

== ENCOUNTER 2024-05-19 10:28 | Day surgery (SDC) | payer MEDICARE, OTHER ==
[~2024-05-19] VITALS: Ht 170.2 cm; Wt 75.2 kg
[~2024-05-19 10:28] MED LIST changes: +BISA10S PR; +TRAM50 PO
[2024-05-19] MEDS ORDERED: CeFAZolin Sodium 2,000 MG VIAL ONE (10:40)
[2024-05-19] MEDS ORDERED: NS 50 ML IV ONE (10:40)
[2024-05-19] MEDS ORDERED: Lactated Ringer's 1,000 ML IV ONE ×2 (11:11→12:26)
[2024-05-19] MEDS ORDERED: Metoclopramide HCl 5MG / ML 2ML Vial ONE (12:07)
[2024-05-19] MEDS ORDERED: FentaNYL Citrate 50 MCG/ML 2 ML Injection ONE (12:07)
[2024-05-19] MEDS ORDERED: Ondansetron HCl 2 MG / ML 2ML Vial ONE (12:07)
[2024-05-19] MEDS ORDERED: propofoL 20 ML IV ONE (12:07)
[2024-05-19] MEDS ORDERED: Dexamethasone Sod Phos 10 MG/ML 1ML VIAL ONE (12:07)
[2024-05-19] MEDS ORDERED: Midazolam HCl 1MG / ML 2ML Vial ONE (12:07)
[2024-05-19] MEDS ORDERED: Ketamine HCl 100 MG / ML 5ML Vial ONE (12:08)
[2024-05-19] MEDS ORDERED: Ropivacaine 0.5% HCl/Pf 5 MG/ML 20ML VIAL INJ ONE ×2 (12:15)
[2024-05-19 13:14] VITALS: BP 130/61
--- NOTE | 2024-05-19 13:19 | NUR ---
05/19/24 Kay Garvin PT DENIED ANY PAIN, NO C/O NAUSEA. PT UP TO RECLINER, HER , BERNARD, AT SIDE OF RECLINER. PT STATED THAT THE DOCTOR SENT A PRESCRIPTION TO HER PERFERRED PHARMACY. PT ABLE TO TOLERATE FLUIDS AND SNACK. PT'S VSS, ALAINA.
== END 2024-05-19 13:37 | disposition home or self-care (01) ==
LOC: ORSCSDS 10:28
PROVIDERS: Podiatrist Foot & Ankle Surgery
PROC: 0SRP0JZ Replacement of Right Toe Phalangeal Joint with Synthetic Substitute, Open Approach (ICD-10-PCS; principal; 2024-05-19 11:45)
PROC: 0QBM0ZZ Excision of Left Tarsal, Open Approach (ICD-10-PCS; principal; 2024-05-19 11:45)
DX: M19.072 Primary osteoarthritis, left ankle and foot (principal); M20.41 Other hammer toe(s) (acquired), right foot; G90.9 Disorder of the autonomic nervous system, unspecified; I10 Essential (primary) hypertension; J44.9 Chronic obstructive pulmonary disease, unspecified; G47.33 Obstructive sleep apnea (adult) (pediatric); Z79.899 Other long term (current) drug therapy
CPT/HCPCS: J0690; J1100; J2250; J2405; J2704; J2765; J2795; J3010; J7120

== ENCOUNTER 2024-06-16 04:21 | Day surgery (SDC) | payer MEDICARE, OTHER ==
[~2024-06-16 04:21] MED LIST changes: +Sod Ferric Gluc Complx/Sucrose 125 MG in NS 100 ML IV SCH
[2024-06-16 10:15] VITALS: BP 129/62
== END 2024-06-16 11:11 | disposition home or self-care (01) ==
LOC: ATC 04:21
DX: K91.89 Other postprocedural complications and disorders of digestive system (principal); D50.8 Other iron deficiency anemias; E66.01 Morbid (severe) obesity due to excess calories; Z68.26 Body mass index [BMI] 26.0-26.9, adult; Z87.891 Personal history of nicotine dependence; Z79.899 Other long term (current) drug therapy; Z88.8 Allergy status to other drugs, medicaments and biological substances; Z90.3 Acquired absence of stomach [part of]; Z90.49 Acquired absence of other specified parts of digestive tract; Z90.710 Acquired absence of both cervix and uterus
CPT/HCPCS: 96365; J2916

== ENCOUNTER 2024-06-17 05:22 | Day surgery (SDC) | payer MEDICARE, OTHER ==
[2024-06-17 07:26] VITALS: BP 136/71
== END 2024-06-17 08:41 | disposition home or self-care (01) ==
LOC: ATC 05:22
DX: K91.89 Other postprocedural complications and disorders of digestive system (principal); D50.8 Other iron deficiency anemias; E66.01 Morbid (severe) obesity due to excess calories; Z68.26 Body mass index [BMI] 26.0-26.9, adult; Z87.891 Personal history of nicotine dependence; Z79.899 Other long term (current) drug therapy; Z88.8 Allergy status to other drugs, medicaments and biological substances; Z90.3 Acquired absence of stomach [part of]; Z90.49 Acquired absence of other specified parts of digestive tract; Z90.710 Acquired absence of both cervix and uterus
CPT/HCPCS: 96365; J2916

== ENCOUNTER 2024-06-22 05:05 | Day surgery (SDC) | payer MEDICARE, OTHER ==
[2024-06-22 14:34] VITALS: BP 134/55
== END 2024-06-22 15:50 | disposition home or self-care (01) ==
LOC: ATC 05:05
DX: K91.89 Other postprocedural complications and disorders of digestive system (principal); D50.9 Iron deficiency anemia, unspecified; Z87.891 Personal history of nicotine dependence; Z79.899 Other long term (current) drug therapy; Z88.8 Allergy status to other drugs, medicaments and biological substances; Z90.710 Acquired absence of both cervix and uterus; Z90.49 Acquired absence of other specified parts of digestive tract
CPT/HCPCS: 96365; J2916

== ENCOUNTER 2024-06-23 03:22 | Day surgery (SDC) | payer MEDICARE, OTHER ==
[2024-06-23 14:15] VITALS: BP 115/59
== END 2024-06-23 15:18 | disposition home or self-care (01) ==
LOC: ATC 03:22
DX: D50.9 Iron deficiency anemia, unspecified (principal); R53.83 Other fatigue; E66.01 Morbid (severe) obesity due to excess calories; K91.89 Other postprocedural complications and disorders of digestive system; Z87.891 Personal history of nicotine dependence; Z79.899 Other long term (current) drug therapy
CPT/HCPCS: 96365; J2916

== ENCOUNTER 2024-06-29 05:03 | Day surgery (SDC) | payer MEDICARE, OTHER ==
[2024-06-29 10:42] VITALS: BP 134/68
== END 2024-06-29 11:49 | disposition home or self-care (01) ==
LOC: ATC 05:03
DX: K91.89 Other postprocedural complications and disorders of digestive system (principal); D50.9 Iron deficiency anemia, unspecified; R53.83 Other fatigue; E66.01 Morbid (severe) obesity due to excess calories; Z68.26 Body mass index [BMI] 26.0-26.9, adult; Z87.891 Personal history of nicotine dependence; Z79.899 Other long term (current) drug therapy
CPT/HCPCS: 96365; J2916

== ENCOUNTER → 2024-07-06 | Outpatient (CLI) | payer MEDICARE, OTHER ==
[~2024-07-06] MED LIST changes: -Sod Ferric Gluc Complx/Sucrose 125 MG in NS 100 ML IV SCH
== END ==
LOC: LAB SHORT 10:35 → LAB 10:35
DX: N39.0 Urinary tract infection, site not specified (principal)
CPT/HCPCS: 87077; 87086; 87186

== ENCOUNTER 2024-07-07 00:30 | Day surgery (SDC) | payer MEDICARE, OTHER ==
[2024-07-07] MEDS ORDERED: Sod Ferric Gluc Complx/Sucrose 125 MG in NS 100 ML IV SCH (06:00)
[2024-07-07 14:11] VITALS: BP 141/76
== END 2024-07-07 15:11 | disposition home or self-care (01) ==
LOC: ATC 00:30
DX: K91.89 Other postprocedural complications and disorders of digestive system (principal); D50.9 Iron deficiency anemia, unspecified; Z87.891 Personal history of nicotine dependence; Z79.899 Other long term (current) drug therapy; Z88.8 Allergy status to other drugs, medicaments and biological substances; Z90.49 Acquired absence of other specified parts of digestive tract; Z90.710 Acquired absence of both cervix and uterus
CPT/HCPCS: 96365; J2916

== ENCOUNTER 2025-06-01 19:27 | Emergency (ER) | payer MEDICARE, OTHER ==
[~2025-06-01] VITALS: Ht 170.2 cm; Wt 68.0 kg
[2025-06-01 20:35] LABS: BASOPHILS ABSOLUTE AUTO 0.04 K/mm3 (0.00-0.23); BASOPHILS PERCENT AUTO 1 % (0-2); EOSINOPHILS ABSOLUTE AUTO 0.13 K/mm3 (0.00-0.68); EOSINOPHILS PERCENT AUTO 2 % (0-6); Hematocrit 36.5 % (33.0-51.0); Hemoglobin 12.1 g/dL (11.5-16.0); IMMATURE GRAN ABSOLUTE AUTO 0.02 K/mm3 (0.00-0.10); IMMATURE GRAN PERCENT AUTO 0 % (0-1); LYMPHOCYTES ABSOLUTE AUTO 1.57 K/mm3 (0.84-5.20); LYMPHOCYTES PERCENT AUTO 23 % (21-46); MONOCYTES ABSOLUTE AUTO 0.79 K/mm3 (0.16-1.47); MONOCYTES PERCENT AUTO 11 % (4-13); Mean Corpuscular HGB Conc 33.2 g/dL (31.5-36.5); Mean Corpuscular Volume 94 fL (80-100); NEUTROPHILS ABSOLUTE AUTO 4.39 K/mm3 (1.96-9.15); NEUTROPHILS PERCENT AUTO 63 % (41-73); NRBC ABSOLUTE 0.00 K/mm3 (0.00-0.02); NRBC Auto 0.0 /100 WBC (0.0-0.2); Platelet Count 271 K/mm3 (150-400); RDW Coefficient Variation 11.7 % (11.7-14.2); RDW Standard Deviation 40.0 fL (35.1-46.3)
[2025-06-01 20:46] LABS: Alanine Aminotransfer (ALT/SGP 15.0 U/L (12-78); Albumin, Blood 3.5 g/dL (3.4-5.0); Albumin/Globulin Ratio 1.1 (0.8-1.8); Anion Gap 8.0 mmol/L (3-11); Aspartate Aminotrans (AST/SGOT 11.0 U/L (12-37); Bilirubin, Total 0.5 mg/dL (0.1-1.0); Blood Urea Nitrogen 15.0 mg/dL (8-24); CO2, Blood 26.0 mmol/L (21-32); Calcium, Blood 10.0 mg/dL (8.5-10.1); Chloride, Blood 108.0 mmol/L (98-108); Creatinine, Blood 0.7 mg/dL (0.40-1.00); Globulin, Blood 3.3 g/dL (2.2-4.0); Glucose, Blood 107.0 mg/dL (70-99); Potassium, Blood 3.8 mmol/L (3.5-5.5); Sodium, Blood 138.0 mmol/L (136-145); Total Protein, Blood 6.8 g/dL (6.4-8.2)
[2025-06-01 22:13] VITALS: BP 122/60
== END 2025-06-01 22:13 | disposition home or self-care (01) ==
LOC: ER 19:27
PROVIDERS: Emergency Medicine
DX: K52.9 Noninfective gastroenteritis and colitis, unspecified (principal); I10 Essential (primary) hypertension; J44.9 Chronic obstructive pulmonary disease, unspecified; E78.5 Hyperlipidemia, unspecified; M19.90 Unspecified osteoarthritis, unspecified site; Z87.891 Personal history of nicotine dependence
CPT/HCPCS: 71045; 74177; 80053; 83690; 84484; 85025; 99285-25; Q9967